=== PATIENT | female | born 1960 | race Caucasian/White ===

== ENCOUNTER 2023-06-27 21:32 | Emergency (ER) | payer OTHER, SELFPAY ==
[2023-06-27 21:35] VITALS: BP 206/124
[2023-06-27 22:19] LABS: % Basophils 0.3 % (0-2); % Eosinophils 1.1 % (0-6); % Immature Granulocytes 0.3 % (0-0.5); % Neutrophils 65.3 % (42.2-75.2); Absolute Eosinophils 0.1 10^3/uL (0-0.7); Absolute Lymphocytes 1.7 10^3/uL (1.2-3.4); Absolute Monocytes 0.5 10^3/uL (0.1-0.6); Absolute Neutrophils 4.3 10^3/uL (1.4-6.5); Hematocrit 38.2 % (37.0-47.0); Hemoglobin 13.5 g/dL (12.0-16.0); Mean Corp Hgb Conc. 35.3 g/dL (33.0-37.0); Mean Corpuscular Hgb 33.3 pg (27.0-31.0); Mean Corpuscular Volume 94.3 fL (81.0-99.0); Mean Platelet Volume 10.4 fL (7.4-10.4); Nucleated Red Blood Cells % 0 %; Platelet Count 167 10^3/uL (130-400); Red Blood Cell Count 4.05 10^6/uL (4.20-5.40); Red Cell Dist. Width 12.6 % (11.5-14.5); White Blood Cell Count 6.6 10^3/uL (4.8-10.8)
--- NOTE | 2023-06-27 22:22 | ED.GENMED ---
History of Present Illness
General
Chief Complaint: Blood Pressure Problem
Source: patient and family
Exam Limitations: none
Time Seen by Provider: 06/27/23 22:22
Nursing documentation reviewed up to this point in time: agreed with
Travel History
Have you had any contact with someone who has COVID-19?: No
Do you have any symptoms of coronavirus? Fever > 100 degrees, chills, cough, shortness of breath, sore throat, loss of taste or smell, muscle aches, or headache?: No
History of Present Illness
History of Present Illness:
Pleasant 62-year-old female that presents with mild headache and elevated blood pressure. Patient states that she has had the symptoms for a week. She recently got routine blood work back, which showed that her AST was elevated. Patient states
that for the last year, she has been drinking a bottle of wine per day. When she got the lab values back, she tried to stop drinking. She did not have any alcohol today. She reports that her headache worsened slightly so she took her blood
pressure. Her blood pressure was elevated. She does take hydrochlorothiazide that was prescribed to her by her primary care provider. She states that she has been compliant. Patient denies chest pain or shortness of breath. Reports no.
Vital signs are stable. Patient not hypoxic
Nursing note reviewed. I agree with nursing documentation up to this point in time.
Home Meds and allergies reviewed.
NUMBER AND COMPLEXITY OF PROBLEMS ADDRESSED AT THE ENCOUNTER
� Chronic conditions affecting care: Hypertension,
� Acute Exacerbation and/or Progression of Chronic Illness: Hypertension
� Differential Diagnosis includes: Hypertension,
AMOUNT AND/OR COMPLEXITY OF DATA TO BE REVIEWED AND ANALYZED
I performed an independent evaluation of the following and my interpretation is:
EKG: EKG shows normal sinus rhythm rate of 98 with normal intervals, normal axis. No evidence of acute ischemia present. When compared with previous EKG dated March 20, 2010, there is no obvious morphology change noted.
CT:
X-rays:
Ultrasound:
Laboratory Studies:
Other:
Review of other/old records: Echocardiogram dated 10/27/2017 shows normal biventricular size and systolic function without regional wall motion abnormality. Mild mitral regurg, mild tricuspid regurg, mildly dilated left atrium.
Clinical information was obtained by an independent historian:
Prescriptions/Medications Considered but not given:
Further testing considered but not performed:
RISK OF COMPLICATIONS AND/OR MORBIDITY OR MORTALITY OF PATIENT MANAGEMENT
Social determinants of health affecting care: Good Social Support family present at the bedside
Discussion with other providers:
Escalation of care including admission/observation vs risk of discharge considered:
CRITICAL CARE NOTE:
Total Time (exclusive of procedures):
Update:
Past History
Past History
ED Past Medical History: HTN, Hypercholesterolemia, NIDDM, Hypothyroidism and Other (Diverticulitis, kidney stones)
ED Past Surgical History: Gynecological (BTL) and Tonsilectomy
Social History
Personal:
Phy Exam
General Physical Exam
General Presentation: well appearing and no apparent distress
General Skin: warm and dry
General Habitus: normal
General Mental: alert
General Hydration: appears well hydrated
ENT Exam
ENT Exam: EOMI, pharynx normal, neck supple and normocephalic
Eye Exam
Eye Exam: PERRL, cornea clear and conjunctiva normal
Cardiovascular Exam
Cardiovascular Exam: regular rate/rhythm, no edema, no murmur and normal peripheral pulses
Pulmonary Exam
Pulmonary Exam: lungs clear, no respiratory distress, no rales, no crackles, no rhonchi, no stridor, no wheezing and no cough
Gastrointestinal Exam
Gastrointestinal Exam: normal bowel sounds, non tender, soft, no organomegaly, no pulsatile mass and non distended
Neurological Exam
Neurological Exam: alert, oriented x3, no motor deficits and speech normal
Musculoskeletal Exam
Musculoskeletal Exam: full ROM and no edema
Skin Exam
Skin Exam: normal color, warm/dry, no rash and no petechia
Psychiatric Exam
Psychiatric Exam: normal mood/affect
Course
Orders/Labs/Results
Orders:
Orders
06/27/23 21:45
Electrocardiogram (*1) Urgent
Reason for Study: Hypertension, Benign
EKG- Treatment ONCE
06/27/23 22:14
CMP [Comprehensive Metabolic Panel] Urgent
Complete Blood Count/With Diff Urgent
06/27/23 22:51
0.9% Sodium Chloride 500 ml [Nss] 500 ml IV BOLUS
06/28/23 00:20
Lisinopril [Zestril] 10 mg PO NOW STA
06/28/23 00:32
Acetaminophen [Tylenol] 1,000 mg .ROUTE .STK-MED ONE
06/28/23 00:35
Acetaminophen [Tylenol] 1,000 mg PO NOW STA
Abnormal Lab Results
06/27/23
22:14
RBC 4.05 L 10^6/uL
(4.20-5.40)
MCH 33.3 H pg
(27.0-31.0)
Sodium 130 L mmol/L
(135-145)
Potassium 3.3 L mmol/L
(3.5-5.1)
Chloride 94 L mmol/L
(98-107)
BUN 23 H mg/dl
(7-17)
AST 46 H U/L
(14-36)
06/27/23 22:14
06/27/23 22:14
Vital Signs
Initial and Last Documented VS:
Initial Vital Signs
Temp Pulse Resp BP Pulse Ox
98.1 F 100 22 206/124 97
06/27/23 21:35 06/27/23 21:35 06/27/23 21:35 06/27/23 21:35 06/27/23 21:35
Last Documented Vital Signs
Temp Pulse Resp BP Pulse Ox
98.1 F 86 10 164/96 96
06/27/23 21:35 06/28/23 02:00 06/28/23 02:00 06/28/23 02:00 06/28/23 02:00
*Critical Care Note
Total Time (30-74mins, 75-104mins- exclusive of procedures): Not Applicable
Update Note
Update Note:
06/28/2023 0207 AM: Patient is resting comfortably. Blood pressure is 162 systolic. She has no symptoms at this time. Will provide a small dose of lisinopril which we will send to her pharmacy. She is due to see her family doctor for further
hypertensive medication. Discussed discharge with patient and daughter. They have no further questions. Patient being discharged in much improved condition.
ED Attending Note
-
Portions of this chart may have been created with voice recognition software.� Occasional wrong word or��sound alike� substitutions may have occurred due to the inherent limitations of voice recognition software.
Discharge Plan
Departure
Patient Disposition: Home (Routine Discharge)
Date of Disposition: 06/28/23
Time of Disposition: 01:10
Patient with high blood pressure during this ER visit?: Yes
Condition: Good
Discharge Problem:
Hypertension
Instructions: High Blood Pressure (DC), BLOOD PRESSURE
Prescriptions:
New
lisinopril 10 mg tablet
10 mg PO DAILY Qty: 10 0RF
No Action
paroxetine HCl 20 MG tablet
20 mg PO DAILY
ibuprofen 200 MG tablet
200 mg PO
thyroid (pork) [[place] Thyroid] 60 MG tablet
45 mg PO DAILY
hydrocodone-acetaminophen 1 EACH tablet
1 ea PO Q4HPRN PRN (Reason: pain) Qty: 20 0RF
metronidazole 500 MG tablet
500 mg PO TID Qty: 30 0RF
levofloxacin 500 MG tablet
500 mg PO DAILY 10 Days 0RF
amoxicillin-pot clavulanate 1 TABLET tablet
1 tab PO Q12 Qty: 14 0RF
Referrals:
Summer Hi DO [Family Provider] - Next open appointment
Activity Restrictions/Additional Instructions:
Your prescriptions were sent electronically to the pharmacy that you specified.
It was a pleasure meeting you and taking part in your care. We hope for your continued healing and wellness.
Please read discharge instructions in their entirety. However, they are for general education and may not describe your exact diagnosis at discharge. Information on your ER visit and medical conditions were discussed with you along with appropriate
follow up information...
If indicated, please take your medications as instructed and indicated on discharge paperwork.
Please schedule a follow up appointment as directed. Call to schedule an appointment
Please return to the emergency department with ANY change in, persisting, or worsening of symptoms. If any of your symptoms do not improve, or persist, or become more severe within 6-12 hours, please return to the emergency department for further
care.
Please return to the emergency department if you develop a headache, neck pain/stiffness, fever greater than 100.4F, chest pain, shortness of breath, persistent nausea, vomiting, slurred speech, difficulty walking, numbness/tingling, weakness, signs
of infection or any other symptoms that are worrisome to you.
If you have any questions or concerns please do not hesitate to call the Hospital at or E-mail me directly at [email or web address]
Interventions
Interventions:
*Risk Screen - Suicide Last Done: 06/27/23 21:35
*Neglect/Abuse Screening Last Done: 06/27/23 21:35
ED- Fall Risk Assessment Last Done: 06/28/23 00:30
*Nursing Disposition Last Done: 06/28/23 02:21
ED- Cardiac Assessment Last Done: 06/28/23 00:30
ED- Neurological Assessment Last Done: 06/28/23 00:30
ED- Pulmonary Assessment Last Done: 06/28/23 00:30
Discharge Date and Time
Discharge Date/Time: 06/28/23 02:22
[2023-06-27 22:27] VITALS: BP 189/93
[2023-06-27 22:39] LABS: ALT (SGPT) 26 U/L (0-35); AST (SGOT) 46 U/L (14-36); Albumin 4.7 g/dl (3.5-5.0); Alkaline Phosphatase 88 U/L (38-126); Blood Urea Nitrogen 23 mg/dl (7-17); Calcium 9.4 mg/dl (8.4-10.2); Carbon Dioxide 29 mmol/L (22-30); Chloride 94 mmol/L (98-107); Glucose 86 mg/dl (70-99); Potassium 3.3 mmol/L (3.5-5.1); Sodium 130 mmol/L (135-145); Total Bilirubin 1.3 mg/dl (0.2-1.3); Total Protein 7.7 g/dl (6.3-8.2); eGFR > 60.00
[2023-06-27 23:00] VITALS: BP 190/95
[2023-06-28] VITALS: BP 190/95
[2023-06-28 00:17] VITALS: BP 172/87
[2023-06-28] MEDS: ZESTRIL 10 MG PO (00:32)
[2023-06-28] MEDS: NSS 500 IV (00:33)
[2023-06-28] MEDS: TYLENOL 1000 MG PO (00:35)
--- NOTE | 2023-06-28 00:48 | EDRN ---
Answered patients call lowe she needed to use the restroom, was able to ambulate to and back in bed resting, informed patient that her nurse is in with a critical patient, patient complains of headache informed Dr. Anderson
[2023-06-28 01:00] VITALS: BP 182/93
[2023-06-28 02:00] VITALS: BP 164/96
== END 2023-06-28 02:22 | disposition home or self-care (01) ==
LOC: EMR 21:32
PROVIDERS: Emergency Medicine; EMERGENCY PHYSICIAN Student in an Organized Health Care Education/Training Program; FAMILY PHYSICIAN Family Medicine
DX: I10 Essential (primary) hypertension (principal); Z87.442 Personal history of urinary calculi
CPT/HCPCS: 99284; 96360; 80053; 85025; 93005

== ENCOUNTER → 2023-09-06 08:06 | Outpatient (REF) | payer OTHER, SELFPAY | LOC: RAD 08:06 | PROVIDERS: ATTENDING PHYSICIAN Family Medicine | DX: Z91.89 Other specified personal risk factors, not elsewhere classified (principal) | CPT/HCPCS: 77080 ==

== ENCOUNTER → 2023-09-10 07:59 | Outpatient (REF) | payer OTHER, SELFPAY | LOC: RAD 07:59 | PROVIDERS: ATTENDING PHYSICIAN Family Medicine | DX: Z87.891 Personal history of nicotine dependence (principal) | CPT/HCPCS: 71271 ==

== ENCOUNTER 2023-12-01 18:21 | Inpatient (IN) | payer OTHER, SELFPAY ==
[2023-12-01 15:06] VITALS: BMI 29.1
[2023-12-01 15:14] VITALS: BP 149/77
--- NOTE | 2023-12-01 16:22 | ED.GENMED ---
History of Present Illness
General
Chief Complaint: Abdominal Pain
Source: patient
Time Seen by Provider: 12/01/23 16:12
History of Present Illness
History of Present Illness:
63yoF with a history of hypertension, hyperlipidemia, and hypothyroidism presenting for evaluation of abdominal pain. She reports lower abdominal pain that began 3 days ago. She initially thought she had a stomach bug because she was having some
vomiting. She also reports fevers up to 101 at home. Her abdominal pain was gradually worsening so she was seen by her PCP this morning. Her PCP sent her for lab work and a CAT scan. CT scan showed 'Acute sigmoid diverticulitis with evidence of
perforation characterized by extraluminal gas in the perisigmoid region.' She was called by her PCP and advised to go to the ED for evaluation. Patient has a history of diverticulitis in the past and underwent colon resection about 12 years ago.
She has not had any episodes of diverticulitis since the procedure until now.
Past History
Past History
ED Past Medical History: HTN, Hypercholesterolemia, NIDDM, Hypothyroidism and Other (Diverticulitis, kidney stones)
ED Past Surgical History: Gynecological (BTL) and Tonsilectomy
Social History
Personal:
Phy Exam
General Physical Exam
General Presentation: well appearing and no apparent distress
General age: appears stated age
General Skin: warm and dry
General Habitus: normal
General Mental: alert
Cardiovascular Exam
Cardiovascular Exam: regular rate/rhythm and no edema
Pulmonary Exam
Pulmonary Exam: lungs clear, no respiratory distress, no crackles and no wheezing
Gastrointestinal Exam
Gastrointestinal Exam: soft, non distended, rebound and tender (+Tenderness throughout lower abdomen with rebound tenderness)
Palpation: left lower quadrant: Moderate tenderness and right lower quadrant: Moderate tenderness
Skin Exam
Skin Exam: normal color and warm/dry
Psychiatric Exam
Psychiatric Exam: normal mood/affect
Course
Orders/Labs/Results
Orders:
Orders
12/01/23 16:22
0.9% Sodium Chloride 1000 ml [Nss] 1,000 ml IV BOLUS
Piperacillin/Tazo 4.5 Gram [Zosyn] 4.5 gram in 100 ml IV NOW
12/01/23 17:50
Admit/Transfer Patient As Directed
Co-Sign Provider:
Level of Care: Inpatient admission
Assign to:: Telemetry
Physician / Group: SHAHID/HOSPITALIST
Diagnosis: Diverticulitis
Reason for Telemetry: Other
Other Reason for Telemetry: IV BP MEDS
Date to Stop Telemetry: 12/03/23
Time to Stop Telemetry: 11:00
Reason for Hospitalization: Acute sigmoid diverticulitis with evidence of perforation
Expected length of stay greater than two midnights?: Yes
ELOS- Estimated Length of Stay in days: 3
I certify the patient meets the requirements for IP care: Yes
PRN Pain Medication Management As Directed
May give lesser potent ordered pain med per pt: Yes
preference::
Protocol:: Medication orders for pain may be administered in a
manner that supports deferring to patient preference
when the pt is:
- Requesting an ordered lesser potent pain medication.
Least to most potent pain medications are defined
as: acetaminophen < NSAID < tramadol < opioids
(morphine, oxycodone, hydromorphone).
- Requesting a lesser dose of the same medication IF
ORDERED.
- Requesting a less intrusive route of administration
if both routes are prescribed by the provider (PO <
IV).
12/01/23 17:51
Code Status As Directed
Resuscitation Status: Full Code
12/03/23 11:00
DC Protocol for Telemetry ONCE
Vital Signs
Initial and Last Documented VS:
Initial Vital Signs
Temp Pulse Resp BP Pulse Ox
99.9 F 110 18 149/77 95
12/01/23 15:14 12/01/23 15:14 12/01/23 15:14 12/01/23 15:14 12/01/23 15:14
Last Documented Vital Signs
Temp Pulse Resp BP Pulse Ox
99.9 F 110 18 149/77 95
12/01/23 15:14 12/01/23 15:14 12/01/23 15:14 12/01/23 15:14 12/01/23 15:14
MDM/Problems Addressed
Differential Diagnosis Includes:
63yoF here with lower abd pain and fevers x [address] scan showed acute diverticulitis with microperforation. HR 110 adnd temp 99.9. BP stable. She is acutely non-toxic appearing. There is rebound tenderness on abdominal exam.
Differential diagnosis includes but is not limited to: diverticulitis, sepsis, abscess
Outpatient labs checked this morning and white count normal. Case discussed with colorectal surgery, Dr. Hawkins, who recommends IV Zosyn for now. Patient admitted for further management.
*Critical Care Note
Total Time (30-74mins, 75-104mins- exclusive of procedures): Not Applicable
ED Attending Note
-
Portions of this chart may have been created with voice recognition software.� Occasional wrong word or��sound alike� substitutions may have occurred due to the inherent limitations of voice recognition software.
Discharge Plan
Departure
Patient Disposition: Admit
Date of Disposition: 12/01/23
Time of Disposition: 16:49
Presentation/result/management discussed w/ accepting MD/DO: Hospitalist
Discharge Problem:
Diverticulitis of colon with perforation
Interventions
Interventions:
*General Assessment Last Done: 12/01/23 15:14
*Neglect/Abuse Screening Last Done: 12/01/23 15:14
ED- Fall Risk Assessment Last Done: 12/01/23 17:11
GB-Vtlqsv-Kcspcoivkx Assessment Last Done: 12/01/23 17:11
[2023-12-01] MEDS: NSS 1000 IV (16:34)
[2023-12-01] MEDS: ZOSYN 100 IV (16:34)
--- NOTE | 2023-12-01 17:44 | HPS.HSE ---
Family Physician
-
Family Physician: Summer Hi, DO
Chief Complaint
-
Abdominal pain
History of Present Illness
63 female past medical history of diverticulitis status post resection who is presenting from home with complaints of abdominal pain x 3 days. Patient also states of some nausea and vomiting. States of elevated temperature and fevers at home. No
bowel movement today. Due to worsening abdominal pain patient followed up with primary care doctor. As outpatient patient underwent blood work and a CAT scan. Patient's abdominal pain is suprapubic and left lower quadrant. She had a scale of
1-10 patient is around 6-7 worse with exertion. Denies any radiation towards the back. Denies any diarrhea. As outpatient patient had CT scan which showed microperforation and she was recommended come to the ER. States she had diverticulitis 12
years ago and underwent colonic 12 cm resection at [facility].
Medical History
Past Medical History
Past Medical History: Reports Other
Additional Past Medical History:
Diverticulitis
Primary hypertension
Mood disorder
Hypothyroidism
GERD
Past Surgical History: Reports Other
Additional Past Surgical History:
Colonic resection
Tubal ligation
Left hip replacement
Social History
Tobacco: Former Smoker (40 years 1-1.5 pack a day)
Alcohol: Occasional
Family History
Family History: Not pertinent
Allergies / Home Medications
Allergies reflects when Allergies were last updated in [employer].
Home Medications with original date entered in [employer]
Allergy/Medication List:
Allergies
Allergy/AdvReac Type Severity Reaction Status Date / Time
No Known Allergies Allergy Verified 12/01/23 15:14
Home Medications
ibuprofen 200 mg tablet 400 mg PO Q6HPRN PRN mild pain 03/20/10
paroxetine HCl 20 mg tablet 20 mg PO DAILY 03/20/10
bupropion HCl 150 mg 24 hr tablet, extended release 150 mg PO DAILY 12/01/23
cholecalciferol (vitamin D3) 125 mcg (5,000 unit) tablet (Vitamin D3) 125 mcg PO DAILY 12/01/23
hydrochlorothiazide 25 mg tablet 25 mg PO DAILY 12/01/23
lisinopril 20 mg tablet 20 mg PO DAILY 12/01/23
metformin 750 mg tablet,extended release 24 hr 750 mg PO DAILY 12/01/23
omeprazole magnesium 20 mg tablet,delayed release (Prilosec OTC) 20 mg PO DAILY 12/01/23
thyroid (pork) 90 mg tablet ([place] Thyroid) 90 mg PO DAILY 12/01/23
Review of Systems
-
History Source: Patient
Constitutional: Reports Fever
EENT: Reports No Symptoms
Respiratory: Reports No Symptoms
Cardiac: Reports No Symptoms
Abdomen/GI: Reports See HPI
: Reports No Symptoms
Musculoskeletal: Reports No Symptoms
Skin: Reports No Symptoms
Neurological: Reports No Symptoms
Endocrine: Reports No Symptoms
Hematologic/Lymphatic: Reports No Symptoms
Physical Exam
Vital Signs
Vital Signs
Temp Pulse Resp BP Pulse Ox
99.9 F 110 18 149/77 95
12/01/23 15:14 12/01/23 15:14 12/01/23 15:14 12/01/23 15:14 12/01/23 15:14
Physical Exam
General: Well Developed, Well Nourished and No Apparent Distress
HEENT: NormoCephalic, Moist mucous membranes and Atraumatic
Respiratory: Clear
Cardiac: S1/S2 and Regular Rhythm; No Murmur or Rub
GI: Soft, Non Distended, Normal Bowel Sounds and Tender (Suprapubic and left lower quadrant. No guarding or rigidity.); No Organomegaly
Rectal: Deferred by Provider
Musculoskeletal: No Clubbing, No Cyanosis and No Edema
Skin: No Rash
Neuro: Awake, Alert, Oriented, AO x 3, No Motor Deficits and Nonfocal/grossly intact
Psych: Calm
Impression/Plan
-
#Abdominal pain secondary acute sigmoid diverticulitis with perforation
#History of diverticulitis status post resection
N.p.o. Bowel rest.
Start IV fluid
Start patient on IV Zosyn
Pain control
Antinausea meds
Colorectal eval-d/w case. plan as above.
#Primary hypertension
Hold p.o. BP meds for now
#Hypothyroidism
Continue p.o. Synthroid
#Mood disorder
Hold p.o. meds for 24 to 48 hours.
#Mild hyponatremia likely secondary to HCTZ versus dehydration
Hold HCTZ for now
DVT prophylaxis Lovenox
I spent a total of 78 minutes with the patient or on the floor. More than 50% of this time involved counseling and coordination of care.
[2023-12-01 19:16] VITALS: BP 160/91; BMI 28.3
[2023-12-01 19:20] VITALS: BP 160/91
[2023-12-01] MEDS: LR 1000 IV (19:57)
[2023-12-01] MEDS: LOVENOX 40 MG SC (20:00)
[2023-12-01] MEDS: TRANDATE 10 MG IV (20:02)
--- NOTE | 2023-12-01 20:06 | CON.CRS ---
Consultation
-
Date/Time Consultation Requested: 12/01/23 @ 16:30
Date/Time Consultation Performed: 12/01/23 @ 17:00
Requesting Provider: Omayra Anders PA-C
Performing Provider: Christiano Hawkins MD
Reason for Consultation: Recurrent sigmoid diverticulitis
Medical History
-
Chief Complaint: abdominal pain
History of Present Illness:
63yo female with pre-diabetes who presents to the ED after undergoing an outpatient CT scan of the abdomen and pelvis earlier today that revealed scute diverticulitis just proximal to a colorectal anastomosis with pericolonic inflammation and a few
foci of extraluminal gas near the inflamed segment. There is no free intraabdominal air, abscess or obstruction. She underwent a laparoscopic sigmoid resection in 2009 at [facility] for diverticulitis and has been symptom-free until
3 days ago when she developed lower abdominal discomfort associated with chills, initial vomiting, and a fever of 101. She initially felt she had food poisoning and she didn't thins she could have diverticulitis again.
At present she denies any nausea and denies not feel distended. She hasn't moved her bowels for 2-3 days but is passing flatus; typically her bowels are normal. Her last colonoscopy was in 2009 and there is no family history of colon cancer.
She has remained afebrile and hemodynamically stable.
Past Medical History
Past Medical History: Diverticulitis, GERD, HTN, Hypothyroidism and Psychiatric (mood disorder)
Past Surgical History: Bowel Resection (2010 laparoscopic sigmoid resection), Gynecological (tubal ligation) and Orthopedic (left hip replacement)
Social History
Tobacco: Former Smoker
Alcohol: Occasional
Drug: None
Personal:
Living: With Family
Employment: Employed
Family History
Family History: Reviewed & Not Pertinent
Allergies / Home Medications
Allergy/AdvReac Type Severity Reaction Status Date / Time
No Known Allergies Allergy Verified 12/01/23 15:14
�Medication �Instructions �Recorded �Confirmed �Type
ibuprofen 200 mg tablet 400 mg PO Q6HPRN PRN mild pain 03/20/10 12/01/23 History
paroxetine HCl 20 mg tablet 20 mg PO DAILY 03/20/10 12/01/23 History
bupropion HCl 150 mg 24 hr tablet, 150 mg PO DAILY 12/01/23 12/01/23 History
extended release
cholecalciferol (vitamin D3) 125 125 mcg PO DAILY 12/01/23 12/01/23 History
mcg (5,000 unit) tablet (Vitamin
D3)
hydrochlorothiazide 25 mg tablet 25 mg PO DAILY 12/01/23 12/01/23 History
lisinopril 20 mg tablet 20 mg PO DAILY 12/01/23 12/01/23 History
metformin 750 mg tablet,extended 750 mg PO DAILY 12/01/23 12/01/23 History
release 24 hr
omeprazole magnesium 20 mg 20 mg PO DAILY 12/01/23 12/01/23 History
tablet,delayed release (Prilosec
OTC)
thyroid (p[place]) 90 mg tablet 90 mg PO DAILY 12/01/23 12/01/23 History
([place] Thyroid)
Review of Systems
-
History Source: Patient
All other systems: Negative unless noted
A 10 point review of systems was completed, and was negative except as per HPI.
Physical Exam
Vital Signs
Temp 100.2 F 12/01/23 19:20
Pulse 86 12/01/23 20:02
Resp Rate 16 12/01/23 19:20
Blood pressure 173/84 12/01/23 20:02
SaO2 96 12/01/23 19:20
11/30/23 12/01/23 12/02/23
06:59 06:59 06:59
Actual Weight 81.964 kg
Body Mass Index (BMI) 28.3
Lab Results / Allergies
Allergy/AdvReac Type Severity Reaction Status Date / Time
No Known Allergies Allergy Verified 12/01/23 15:14
Physical Exam
General: Well Developed, Well Nourished, No Apparent Distress and Comfortable
HEENT: Anicteric
Respiratory: Clear
Cardiac: Regular Rhythm
GI: Soft and Tender (minimal LLQ; no peritoneal signs)
Musculoskeletal: No Edema
Skin: Warm and Dry
Neuro: Awake
Psych: Calm
Data Reviewed
-
CT Scan: Image Personally Visualized and interpreted, Report Reviewed by me and Discussed with Patient
Labs: Labs Reviewed by me and Discussed with Patient
Assessment / Plan
-
Diverticulitis just proximal to the previous colorectal anastomosis with a few foci of extraluminal gas.
Hemodynamically stable with a normal WBC. I reviewed the current findings and discussed the treatment options including nonoperative management with bowel rest and antibiotics, versus surgery. Surgery at this time could involve a temporary ostomy. I
do not feel surgery is indicated but I recommend admission for management and she is in agreement. Surgery will be advised if her symptoms worsen. Ultimately, a colonoscopy will be recommended as an outpatient. All questions answered. Will follow.
[2023-12-01] MEDS: ZOSYN 50 IV (22:53)
[2023-12-01 23:00] VITALS: BP 151/83
[2023-12-02 03:00] VITALS: BP 130/75
[2023-12-02] MEDS: ZOSYN 50 IV ×4 (04:02→22:22)
[2023-12-02] MEDS: ARMOUR THYROID 90 MG PO (05:16)
[2023-12-02] MEDS: LR 1000 IV (06:00)
[2023-12-02 07:25] VITALS: BP 143/80
[2023-12-02 08:09] LABS: % Basophils 0.4 % (0-2); % Eosinophils 1.8 % (0-6); % Immature Granulocytes 0.4 % (0-0.5); % Lymphocytes 24.8 % (20.5-51.1); % Monocytes 11.8 % (1.7-9.3); % Neutrophils 60.8 % (42.2-75.2); Absolute Eosinophils 0.1 10^3/uL (0-0.7); Absolute Lymphocytes 1.1 10^3/uL (1.2-3.4); Absolute Monocytes 0.5 10^3/uL (0.1-0.6); Absolute Neutrophils 2.8 10^3/uL (1.4-6.5); Mean Corp Hgb Conc. 33.3 g/dL (33.0-37.0); Mean Corpuscular Hgb 31.6 pg (27.0-31.0); Mean Corpuscular Volume 94.7 fL (81.0-99.0); Nucleated Red Blood Cells % 0 %; Platelet Count 170 10^3/uL (130-400); Red Cell Dist. Width 13.2 % (11.5-14.5); White Blood Cell Count 4.6 10^3/uL (4.8-10.8)
[2023-12-02] MEDS: PROTONIX IV 40 MG IV (08:30)
[2023-12-02] MEDS: NSS (PRESERVATIVE FREE) 10 ML IV (08:30)
[2023-12-02 08:39] LABS: Blood Urea Nitrogen 7 mg/dl (7-17); Calcium 9.1 mg/dl (8.4-10.2); Carbon Dioxide 29 mmol/L (22-30); Chloride 103 mmol/L (98-107); Estimated Creatinine Clearance 89 ml/min; Glucose 104 mg/dl (70-99); Potassium 4.1 mmol/L (3.5-5.1); Sodium 139 mmol/L (135-145); eGFR > 60.00
--- NOTE | 2023-12-02 10:51 | W.PN.CRS1 ---
Today's Communication / Plan
-
Clear liquids
Continue antibiotics
Assessment/Plan
-
Diverticulitis just proximal to the previous colorectal anastomosis with a few foci of extraluminal gas.
-Advance diet to clears
-Trend WBC. Normalized at 4.6. Vitals normal.
-Continue IV antibiotics
-No surgery recommended at this time. If she worsens she will require a colectomy with colostomy creation.
-Colonoscopy as an outpatient
Subjective Data
Subjective Data
Date of Service: December 02, 2023
Patient states that she is feeling improved today. She had a better night last night. She is very hungry. She had 2 bowel movements on the looser side. She has no nausea or vomiting.
Objective Data
-
Vital Signs
Temp Pulse Resp BP Pulse Ox
97.9 F 73 18 143/80 96
12/02/23 07:25 12/02/23 07:25 12/02/23 07:25 12/02/23 07:25 12/02/23 07:25
Intake & Output
12/01/23 12/02/23 12/03/23
06:59 06:59 06:59
Intake Total 1200 / 1200
Balance 1200 / 1200
Intake:
IV fluids (Total) 1100 / 1100
IV piggybacks 100 / 100
Other:
How many times incontinent 1
SMALL amount urine
How many times incontinent 2
MODERATE amount urine
Lab Results
12/02/23 07:18
12/02/23 07:18
Physical Exam
-
General: No Acute Distress and AOx3
Abdomen: Soft, Non Distended and Tender (Left lower quadrant, minimal)
Skin: Warm and Dry
[2023-12-02 11:05] VITALS: BP 147/81
--- NOTE | 2023-12-02 11:22 | W.PN.HOSP.TC ---
Today's Communication/Plan
-
clears
IVF
iv abx
CRS Recs
restart home meds
Assessment / Plan
Assessment / Plan
General: Well Developed, Well Nourished and No Apparent Distress
HEENT: NormoCephalic, Moist mucous membranes and Atraumatic
Respiratory: Clear
Cardiac: S1/S2 and Regular Rhythm; No Murmur or Rub
GI: Soft, Non Distended, Normal Bowel Sounds and Tender (Suprapubic and left lower quadrant. No guarding or rigidity.); No Organomegaly
Rectal: Deferred by Provider
Musculoskeletal: No Clubbing, No Cyanosis and No Edema
Skin: No Rash
Neuro: Awake, Alert, Oriented, AO x 3, No Motor Deficits and Nonfocal/grossly intact
Psych: Calm
#Abdominal pain secondary acute sigmoid diverticulitis with perforation
#History of diverticulitis status post resection
Started on clears. Diet per CRS.
Started IV fluid
Start patient on IV Zosyn
Pain control
Antinausea meds
Colorectal eval-
#Primary hypertension
Start home regimen lisinopril and HCTZ
#Hypothyroidism
Continue p.o. Synthroid
#Mood disorder
start home regimen bupropion and paroxetine
#Mild hyponatremia likely secondary to HCTZ versus dehydration
resolved.
DVT prophylaxis Lovenox
Anticipated Discharge: 24 - 48 hours
Subjective/Interval History
-
Date of Service: December 02, 2023
states improvement in abd discomfort
Objective Data
-
Labs:
Laboratory Results
12/02/23
07:18
WBC 4.6 L
Hgb 12.0
Hct 36.0 L
Plt Count 170
Sodium 139
Potassium 4.1
Chloride 103
Carbon Dioxide 29
BUN 7
Creatinine 0.7
Glucose 104 H
Calcium 9.1
Vital Signs:
Vital Signs
Temp Pulse Resp BP Pulse Ox
98.2 F 81 18 147/81 98
12/02/23 11:05 12/02/23 11:05 12/02/23 11:05 12/02/23 11:05 12/02/23 11:05
I&O
12/01/23 12/02/23 12/03/23
06:59 06:59 06:59
Intake Total 1200 / 1200
Balance 1200 / 1200
Data Reviewed
-
Total Time Spent with Patient (in minutes): 56
[2023-12-02] MEDS: VITAMIN D3 (cholecalciferol) 125 MCG PO (11:35)
[2023-12-02] MEDS: PAXIL 20 MG PO (11:35)
[2023-12-02] MEDS: WELLBUTRIN XL (24 hour extended release) 150 MG PO (11:35)
[2023-12-02] MEDS: ZESTRIL 20 MG PO (11:37)
[2023-12-02 15:19] VITALS: BP 167/91
--- NOTE | 2023-12-02 15:51 | PN.CDI ---
CDI
- -
CDI:
Physician Documentation Request
Admit Date: 12/01/23 18:21
Dear Doctor Mitchell,
Clinical Indicators:
Patient admitted with acute sigmoid diverticulitis with perforation.
11/30 CRS consult, '...she developed lower abdominal discomfort associated with chills, initial vomiting, and a fever of 101.'
HR trend on admission:
12/01/23
15:14 12/01/23
18:36 12/01/23
19:16
Pulse 110 91 95
Please clarify which of the following most accurately describes the status of the patient's infection:
Sepsis, POA
- Systemic manifestations of infection, with 2 or more SIRS criteria which include:
- Fever >100.4 degrees F or hypothermia < 96.8 degrees F
- Leukocytosis - WBC > 12,000 or leukopenia - WBC < 4,000 or > 10% bands
- Tachycardia > 90 beats per minute
- Tachypnea - RR > 20 breaths per minute or PaCO2 , 32mmHg
Source: Merck Manual 2013
Diverticulitis Only, Without Systemic Illness
Other
Use of terms such as suspected, likely, concern for, or probable (associated with a specific diagnosis that is being evaluated, monitored, or treated as if it exists) are acceptable and can be coded in the inpatient setting, when documented at the
time of discharge.
Thank you,
Joanne Farfan RN BSN
CDI Specialist
available via tiger text
Please use your independent medical judgment in providing your response.
--- NOTE | 2023-12-02 16:17 | CM ---
Met with patient at bedside; initial assessment completed
[facility] [id number] [facility]
Patient and spouse live in a multilevel home; 3 steps to enter; 13 steps between floors; railings present; bathrooms on 1st and 2nd floors; 2nd floor master bath has stall shower with seat
PLOF: independent with ambulation, stairs, and ADLs; works part time flexible clerk; drives
NO SNF history
Home Health services a year ago after left hip procedure; nothing recent
Transportation: drove self to hospital; plans to drive self home
Plan: discharge to home when stable; no needs anticipated
[2023-12-02] MEDS: LR IV (16:51)
[2023-12-02] MEDS: LOVENOX 40 MG SC (17:39)
[2023-12-02 19:48] VITALS: BP 146/87
[2023-12-02 23:10] VITALS: BP 154/89
[2023-12-03 03:55] VITALS: BP 141/77
[2023-12-03] MEDS: ARMOUR THYROID 90 MG PO (05:00)
[2023-12-03] MEDS: ZOSYN 50 IV ×2 (05:00→10:32)
[2023-12-03 07:25] LABS: % Basophils 0.3 % (0-2); % Eosinophils 2.9 % (0-6); % Immature Granulocytes 0.3 % (0-0.5); % Monocytes 13.7 % (1.7-9.3); % Neutrophils 53.8 % (42.2-75.2); Absolute Eosinophils 0.1 10^3/uL (0-0.7); Absolute Lymphocytes 0.9 10^3/uL (1.2-3.4); Absolute Monocytes 0.4 10^3/uL (0.1-0.6); Absolute Neutrophils 1.7 10^3/uL (1.4-6.5); Hematocrit 36.5 % (37.0-47.0); Hemoglobin 12.3 g/dL (12.0-16.0); Mean Corp Hgb Conc. 33.7 g/dL (33.0-37.0); Mean Corpuscular Hgb 32.6 pg (27.0-31.0); Mean Corpuscular Volume 96.8 fL (81.0-99.0); Mean Platelet Volume 10.7 fL (7.4-10.4); Nucleated Red Blood Cells % 0 %; Platelet Count 155 10^3/uL (130-400); Red Blood Cell Count 3.77 10^6/uL (4.20-5.40); Red Cell Dist. Width 13.1 % (11.5-14.5); White Blood Cell Count 3.1 10^3/uL (4.8-10.8)
[2023-12-03 07:39] VITALS: BP 162/86
[2023-12-03 07:50] LABS: Blood Urea Nitrogen 4 mg/dl (7-17); Calcium 8.9 mg/dl (8.4-10.2); Carbon Dioxide 29 mmol/L (22-30); Chloride 101 mmol/L (98-107); Estimated Creatinine Clearance 89 ml/min; Glucose 109 mg/dl (70-99); Potassium 3.9 mmol/L (3.5-5.1); Sodium 137 mmol/L (135-145); eGFR > 60.00
[2023-12-03] MEDS: PROTONIX IV 40 MG IV (08:30)
[2023-12-03] MEDS: NSS (PRESERVATIVE FREE) 10 ML IV (08:30)
[2023-12-03] MEDS: ORETIC 25 MG PO (08:31)
[2023-12-03] MEDS: PAXIL 20 MG PO (08:31)
[2023-12-03] MEDS: WELLBUTRIN XL (24 hour extended release) 150 MG PO (08:31)
[2023-12-03] MEDS: VITAMIN D3 (cholecalciferol) 125 MCG PO (08:31)
[2023-12-03] MEDS: ZESTRIL 20 MG PO (08:31)
--- NOTE | 2023-12-03 10:48 | CM ---
CM following re: discharge planning.
Reviewed pt's chart, met with pt.
Per Colorectal surgery - no surgery recommended at this time. Pt is aware.
Pt lives with spouse in a 2SH and pt is independent in all areas [employer], drives, works radio time sales supervisor.
D/C plan: home with anticipated no needs.
CM will follow with discharge plan updates as needed.
--- NOTE | 2023-12-03 10:55 | W.PN.CRS1 ---
Today's Communication / Plan
-
Low residue
Assessment/Plan
-
Diverticulitis just proximal to the previous colorectal anastomosis with a few foci of extraluminal gas.
-Advance diet to low residue
-Trend WBC. Normalized to 3.1. Vitals normal.
-Continue IV antibiotics
-No surgery recommended at this time.
-Colonoscopy as an outpatient
-If tolerates low residue diet, okay to DC. Will sign off. Please contact us if further surgical issues arise.
- Follow up with Dr. Hawkins in 3-4 weeks. Finish outpatient course of antibiotics.
Subjective Data
Subjective Data
Date of Service: December 03, 2023
Patient states she feels well. She has no pain. She is tolerating full liquid diet. She has no nausea or vomiting.
Objective Data
-
Vital Signs
Temp Pulse Resp BP Pulse Ox
98.1 F 69 17 162/86 97
12/03/23 07:39 12/03/23 07:39 12/03/23 07:39 12/03/23 07:39 12/03/23 07:39
Intake & Output
12/02/23 12/03/23 12/04/23
06:59 06:59 06:59
Intake Total 1200 / 1200 580 / 580
Balance 1200 / 1200 580 / 580
Intake:
Oral fluids 480 / 480
IV fluids (Total) 1100 / 1100 50 / 50
IV piggybacks 100 / 100 50 / 50
Other:
Number of approximated MODERATE 1
amounts of urine
How many times incontinent 1
SMALL amount urine
How many times incontinent 2
MODERATE amount urine
Lab Results
12/03/23 06:13
12/03/23 06:13
Physical Exam
-
General: No Acute Distress and AOx3
Abdomen: Soft, Non Distended and Non Tender
Skin: Warm and Dry
--- NOTE | 2023-12-03 11:04 | W.PN.HOSP.TC ---
Today's Communication/Plan
-
P.o. antibiotics on discharge
Monitor on low residue diet
If tolerating diet tentative DC later today
Outpatient surgery follow-up
Assessment / Plan
Assessment / Plan
General: Well Developed, Well Nourished and No Apparent Distress
HEENT: NormoCephalic, Moist mucous membranes and Atraumatic
Respiratory: Clear
Cardiac: S1/S2 and Regular Rhythm; No Murmur or Rub
GI: Soft, Non Distended, Normal Bowel Sounds and nontender
Rectal: Deferred by Provider
Musculoskeletal: No Clubbing, No Cyanosis and No Edema
Skin: No Rash
Neuro: Awake, Alert, Oriented, AO x 3, No Motor Deficits and Nonfocal/grossly intact
Psych: Calm
# Sepsis likely secondary acute sigmoid diverticulitis with perforation-poa
#History of diverticulitis status post resection
Diet advanced to low residue.
DC
Start patient on IV Zosyn switch to p.o. Augmentin on discharge
Pain control
Antinausea meds
Colorectal eval-outpatient follow-up
#Primary hypertension
Start home regimen lisinopril and HCTZ
#Hypothyroidism
Continue p.o. Synthroid
#Mood disorder
start home regimen bupropion and paroxetine
#Mild hyponatremia likely secondary to HCTZ versus dehydration
resolved.
DVT prophylaxis Lovenox
More than 30 minutes spent in discharge including
Final examination of the patient
Summarizing hospital stay
Instructions for continuing care to all relevant caregivers
Preparation of discharge records, prescriptions, and referral forms
Total time spent (in minutes): 60
Anticipated Discharge: Today
Subjective/Interval History
-
Date of Service: December 03, 2023
Denies abdominal pain nausea vomiting
Objective Data
-
Labs:
Laboratory Results
12/03/23
06:13
WBC 3.1 L
Hgb 12.3
Hct 36.5 L
Plt Count 155
Sodium 137
Potassium 3.9
Chloride 101
Carbon Dioxide 29
BUN 4 L
Creatinine 0.7
Glucose 109 H
Calcium 8.9
Vital Signs:
Vital Signs
Temp Pulse Resp BP Pulse Ox
98.1 F 69 17 162/86 97
12/03/23 07:39 12/03/23 07:39 12/03/23 07:39 12/03/23 07:39 12/03/23 07:39
I&O
12/02/23 12/03/23 12/04/23
06:59 06:59 06:59
Intake Total 1200 / 1200 580 / 580
Balance 1200 / 1200 580 / 580
--- NOTE | 2023-12-03 11:05 | W.DCSUMMARY ---
Discharge Summary
Discharge Data
Date of Admission: 12/01/23
Date of Discharge: 12/03/23
-
Pending Results: No
Hospital Course
63-year female past medical history of diverticulitis status post resection, hypertension, hypothyroidism, mood disorder who is presenting from home with abdominal pain. Underwent CT abdomen pelvis that showed Acute sigmoid diverticulitis with
evidence of perforation characterized by extraluminal gas in the perisigmoid region. No gas is seen elsewhere in the abdomen. There is no perisigmoid fluid collection. Colorectal surgery was consulted. Plan was for conservative measures and no
surgery required. Patient was admitted to the hospital and kept n.p.o. and IV fluid was started. IV Zosyn was started. Patient with significant improvement in abdominal pain with conservative measures and was started on liquid diet. Patient
tolerated liquid diet and subsequently was advanced to low residue diet. Patient tolerated low residue diet will be discharged home with recommendation to follow-up outpatient with colorectal surgery. IV Zosyn was transitioned to p.o. Augmentin
at discharge. All questions were answered and patient agreed and verbalized understanding for discharge home today.
Discharge Plan
-
Patient Disposition: Home (Routine Discharge)
Discharge Diagnosis/Procedures: Sepsis/Abdominal pain secondary acute sigmoid diverticulitis with perforation
Condition: Fair
Diet: Low Residue
Activity: With assistance and As tolerated
Driving Restrictions: As prior to admission
Referrals:
Cleveland Hawkins MD [Active] - in three to four weeks
Summer Hi DO [Family Provider] - in less than 1 week
Prescriptions:
New
amoxicillin-pot clavulanate [Augmentin XR] 1,000-62.5 mg tablet extended release 12 hr
1 tab PO BID 10 Days Qty: 20 0RF
Continued
paroxetine HCl 20 MG tablet
20 mg PO DAILY
ibuprofen 200 MG tablet
400 mg PO Q6HPRN PRN (Reason: mild pain)
lisinopril 20 mg Tablet
20 mg PO DAILY
hydrochlorothiazide 25 mg Tablet
25 mg PO DAILY
metformin 750 mg Tablet Extended Release 24 Hr
750 mg PO DAILY
omeprazole magnesium [Prilosec OTC] 20 mg Tablet,Delayed Release (Dr/Ec)
20 mg PO DAILY
bupropion HCl 150 mg Tablet Extended Release 24 Hr
150 mg PO DAILY
cholecalciferol (vitamin D3) [Vitamin D3] 125 mcg (5,000 unit) Tablet
125 mcg PO DAILY
thyroid (pork) [[place] Thyroid] 90 mg Tablet
90 mg PO DAILY
Discharge Orders:
Discharge Patient (As Directed); Ordered 12/03/23
Ordered By: Wong Oviedo
Discharge Date and Time
Print Language: BULGARIAN
[2023-12-03 11:20] VITALS: BP 139/79
[2023-12-03 11:31] VITALS: BP 139/79
== END 2023-12-03 13:30 | disposition home or self-care (01) | DRG 872 ==
LOC: 2 SOUTH 18:21
PROVIDERS: ADMITTING PHYSICIAN Hospitalist; CONSULT PHYSICIAN Surgery; EMERGENCY PHYSICIAN Emergency Medicine; FAMILY PHYSICIAN Family Medicine
DX: A41.9 Sepsis, unspecified organism (principal); E87.1 Hypo-osmolality and hyponatremia; K57.20 Diverticulitis of large intestine with perforation and abscess without bleeding; E78.00 Pure hypercholesterolemia, unspecified; I10 Essential (primary) hypertension; E03.9 Hypothyroidism, unspecified; E11.9 Type 2 diabetes mellitus without complications; F39 Unspecified mood [affective] disorder; K21.9 Gastro-esophageal reflux disease without esophagitis; E86.0 Dehydration; T50.2X5A Adverse effect of carbonic-anhydrase inhibitors, benzothiadiazides and other diuretics, initial encounter; Z87.891 Personal history of nicotine dependence; Z79.84 Long term (current) use of oral hypoglycemic drugs; Z79.899 Other long term (current) drug therapy; Z90.49 Acquired absence of other specified parts of digestive tract
CPT/HCPCS: 36415; 74177; 80048; 80053; 85025; 96365; 99284; Q9967

== ENCOUNTER → 2024-02-01 06:20 | Day surgery (SDC) | payer OTHER, SELFPAY | LOC: GI 06:20 | PROVIDERS: ATTENDING PHYSICIAN Surgery | DX: Z12.11 Encounter for screening for malignant neoplasm of colon (principal); Z86.0102 Personal history of hyperplastic colon polyps; K57.30 Diverticulosis of large intestine without perforation or abscess without bleeding; K63.89 Other specified diseases of intestine; K63.5 Polyp of colon; K62.1 Rectal polyp | CPT/HCPCS: 45380; 88305 ==